=== PATIENT | female | born 1975 | race Caucasian/White ===

== ENCOUNTER 2019-04-24 11:54 | Outpatient (CLI) | payer BC ==
--- NOTE | 2019-04-24 12:11 | RAD ---
XR Chest Pa Lat STANDARD History: Upper respiratory infection Comparison: Chest radiograph September 29, 2015 Findings: Lungs are clear. No pneumothorax. No effusion. Cardiac silhouette and mediastinal contours are within normal limits. No acute osseous abnormality. Impression: No acute intrathoracic abnormality.
== END 2019-04-24 11:55 | disposition home or self-care (01) ==
LOC: BICRAD 11:54
PROVIDERS: ATTEND Family Medicine
DX: T17.908A Unspecified foreign body in respiratory tract, part unspecified causing other injury, initial encounter (principal); J06.9 Acute upper respiratory infection, unspecified
CPT/HCPCS: 71046

== ENCOUNTER 2019-08-15 15:35 | Outpatient (CLI) | payer BC ==
--- NOTE | 2019-08-15 16:10 | RAD ---
RADIOGRAPH CHEST 2 VIEWS: DATE: 08/15/2019 HISTORY: 44-year-old female with acute, traumatic chest pain due to fall FINDINGS: There is no airspace density, pulmonary edema, pleural effusion, pneumothorax, or cardiomegaly. IMPRESSION: No acute cardiopulmonary findings.
== END 2019-08-15 15:36 | disposition home or self-care (01) ==
LOC: SCSRAD 15:35
PROVIDERS: ATTEND Family Medicine
DX: R07.82 Intercostal pain (principal)
CPT/HCPCS: 71046